=== PATIENT | male | born 1975 | race Caucasian/White ===

== ENCOUNTER 2016-10-30 09:56 | Emergency (ER) | payer BC ==
[~2016-10-30] VITALS: Ht 167.6 cm; Wt 100.0 kg
[2016-10-30] MEDS ORDERED: PERCOCET 5/31 TABLET PO (14:18)
[2016-10-30 15:19] VITALS: BP 139/83
== END 2016-10-30 15:19 | disposition home or self-care (01) ==
LOC: EME 09:56
PROC: 0QSGXZZ Reposition Right Tibia, External Approach (ICD-10-PCS; principal; 2016-10-30)
DX: S82.491A Other fracture of shaft of right fibula, initial encounter for closed fracture (principal); S82.891A Other fracture of right lower leg, initial encounter for closed fracture; X50.1XXA Overexertion from prolonged static or awkward postures, initial encounter; W18.39XA Other fall on same level, initial encounter; Y93.01 Activity, walking, marching and hiking; Y92.821 Forest as the place of occurrence of the external cause
CPT/HCPCS: 73590; 73600; 73610; 99281; 99285; J2270